=== PATIENT | male | born 1990 | race Two or more races ===

== ENCOUNTER 2020-04-30 20:04 | Emergency (ER) | payer OTHER ==
[~2020-04-30] VITALS: Ht 172.7 cm; Wt 108.9 kg
== END 2020-04-30 22:46 | disposition home or self-care (01) ==
LOC: ER 20:04
DX: S62.336A Displaced fracture of neck of fifth metacarpal bone, right hand, initial encounter for closed fracture (principal); W23.0XXA Caught, crushed, jammed, or pinched between moving objects, initial encounter; Y93.89 Activity, other specified; Y92.89 Other specified places as the place of occurrence of the external cause; Y99.8 Other external cause status

== ENCOUNTER 2020-05-04 11:37 | Outpatient (CLI) | payer OTHER | END 2020-05-04 11:57 | disposition home or self-care (01) | LOC: RAD 11:37 | PROVIDERS: ATTEND Orthopaedic Surgery | DX: S62.336A Displaced fracture of neck of fifth metacarpal bone, right hand, initial encounter for closed fracture (principal) ==

== ENCOUNTER 2022-01-09 20:53 | Emergency (ER) | payer OTHER ==
[~2022-01-09] VITALS: Ht 172.7 cm; Wt 104.3 kg
== END 2022-01-10 00:34 | disposition home or self-care (01) ==
LOC: ER 20:53
DX: S40.011A Contusion of right shoulder, initial encounter (principal); W01.0XXA Fall on same level from slipping, tripping and stumbling without subsequent striking against object, initial encounter; Y93.64 Activity, baseball; Y92.320 Baseball field as the place of occurrence of the external cause

== ENCOUNTER 2022-03-09 09:08 | Emergency (ER) | payer OTHER ==
[~2022-03-09] VITALS: Ht 172.7 cm; Wt 104.3 kg
== END 2022-03-09 09:31 | disposition home or self-care (01) ==
LOC: ER 09:08
DX: S81.831A Puncture wound without foreign body, right lower leg, initial encounter (principal)

== ENCOUNTER 2022-08-24 12:27 | Emergency (ER) | payer OTHER ==
[~2022-08-24] VITALS: Ht 172.7 cm; Wt 92.5 kg
[2022-08-24] MEDS ORDERED: PRESION (13:04)
== END 2022-08-24 19:54 | disposition home or self-care (01) ==
LOC: ER 12:27
DX: R11.10 Vomiting, unspecified (principal); E80.6 Other disorders of bilirubin metabolism; K80.20 Calculus of gallbladder without cholecystitis without obstruction